=== PATIENT | female | born 1960 | race Caucasian/White ===

== ENCOUNTER → 2017-03-12 | Outpatient (CLI) | payer BC ==
[~2017-03-12] MED LIST: GLUCAGON FOR INJ 1 MG VIAL SQ SCH; NURSING VERBAL MED ORDER ONE; PXLUNK; thyroxine
--- NOTE | 2017-03-12 13:16 | DIAGNOSTIC IMAGING REPORT ---
MR ENTEROGRAPHY OF THE ABDOMEN AND PELVIS CLINICAL HISTORY: B12 deficiency. Small bowel abnormality on prior MRI and CT. COMPARISON STUDY: CT of the abdomen and pelvis March 25, 2016 and MR enterography May 26, 2016. TECHNIQUE: The patient ingested Volumen. There was a 1.5 Gena magnet, multiplanar, multi echo imaging of the abdomen was performed pre and postcontrast administration. Injection of 9 cc of Gadavist IV was uneventful. 1 mg of glucagon was administered IM at 10:25 AM. FINDINGS: There is suspected fatty infiltration of the liver. No hepatic lesions are present. The spleen, adrenal glands, kidneys and pancreas are normal. There is no biliary or pancreatic ductal dilatation. There is no evidence for a bowel obstruction. There is mild wall thickening and enhancement of the terminal ileum which is slightly improved since MRI of May 26, 2016. There is wall thickening is predominantly T2 hypointense. No additional areas of bowel wall thickening are present. No abscess or fistula is identified on since examination. Several uterine lesions are unchanged and suggest fibroids. Visualized skeletal structures are unremarkable. There is no ascites. Major vasculature of the abdomen is patent. IMPRESSION: 1. Mild terminal ileal wall thickening and enhancement, slightly improved since MRI of May 26, 2016. This favors a chronic inflammatory process such as Crohn's disease. No abscess, fistula or bowel obstruction. 2. No additional sites of bowel wall thickening. Electronically signed by: Oliver Landry M.D. 03/12/2017 1:15 PM Dictated Date/Time: 03/12/2017 11:46 AM
== END | disposition home or self-care (01) ==
LOC: C.MRI 08:41
PROVIDERS: ATTEND Internal Medicine Gastroenterology
DX: E53.8 Deficiency of other specified B group vitamins (principal)

== ENCOUNTER → 2017-08-04 | Outpatient (CLI) | payer BC ==
[~2017-08-04] MED LIST changes: -GLUCAGON FOR INJ 1 MG VIAL SQ SCH; -NURSING VERBAL MED ORDER ONE
== END | disposition home or self-care (01) ==
LOC: C.PAPS 11:42
PROVIDERS: ATTEND Family Medicine
DX: Z12.72 Encounter for screening for malignant neoplasm of vagina (principal)

== ENCOUNTER → 2017-11-23 | Outpatient (CLI) | payer OTHER ==
--- NOTE | 2017-11-25 07:55 | MAMMOGRAPHY REPORT ---
BILATERAL DIGITAL SCREENING MAMMOGRAM TOMOSYNTHESIS WITH CAD: 11/23/2017 CLINICAL HISTORY: Routine screening. Patient has no complaints. TECHNIQUE: Breast tomosynthesis in addition to standard 2D mammography was performed. Current study was also evaluated with a Computer Aided Detection (CAD) system. COMPARISON: Comparison is made to exams dated: 08/01/2013 mammogram, 06/09/2012 mammogram, 1 mammogram - [facility], 10/08/2008, 04/01/2007, and 04/01/2007. BREAST COMPOSITION: There are scattered areas of fibroglandular density in both breasts. FINDINGS: There is a 9 mm partially circumscribed mass in the 6:00 posterior left breast, and adjace nt 3 mm nodular asymmetry slightly lateral to the 6:00 mass in the CC projection, for which additiona l spot compression tomosynthesis views and possible ultrasound are recommended. No other suspicious mass, architectural distortion or cluster of microcalcifications is seen bilatera lly. IMPRESSION: ACR BI-RADS CATEGORY 0: INCOMPLETE EVALUATION: NEED ADDITIONAL IMAGING EVALUATION The 9 mm mass in the 6:00 left breast, and adjacent nodular asymmetry need additional evaluation. The patient will be called to schedule an appointment. Approximately 10% of breast cancers are not detected with mammography. A negative mammographic report should not delay biopsy if a clinically suggestive mass is present. Marley Moss M.D. 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
== END | disposition home or self-care (01) ==
LOC: C.MAMM 11:04
PROVIDERS: ATTEND Family Medicine
DX: Z12.31 Encounter for screening mammogram for malignant neoplasm of breast (principal); N63.20 Unspecified lump in the left breast, unspecified quadrant

== ENCOUNTER → 2017-11-23 | Outpatient (CLI) | payer OTHER | END | disposition home or self-care (01) | LOC: C.PATHSPEC 17:11 | PROVIDERS: ATTEND Plastic Surgery | DX: L72.9 Follicular cyst of the skin and subcutaneous tissue, unspecified (principal); L73.8 Other specified follicular disorders ==

== ENCOUNTER → 2017-11-30 | Outpatient (CLI) | payer OTHER ==
--- NOTE | 2017-12-01 07:51 | MAMMOGRAPHY REPORT ---
UNILATERAL LEFT DIGITAL DIAGNOSTIC MAMMOGRAM TOMOSYNTHESIS AND TARGETED LEFT ULTRASOUND: 11/30/2017 CLINICAL HISTORY: Callback from screening mammography for a 9 mm partially circumscribed mass and pos sible 3 mm nodular asymmetry in the left breast. TECHNIQUE: Spot compression tomosynthesis left CC and MLO views were obtained; Full-field left CC an d MLO tomosynthesis images were obtained after placement of a skin BB marker. COMPARISON: Comparison is made to exams dated: 11/23/2017 mammogram, 08/01/2013 mammogram, 06/09/2012 mammogram, 06/04/2011 mammogram - [facility], 10/08/2008, and 03/29/2007. BREAST COMPOSITION: There are scattered areas of fibroglandular density in the left breast. FINDINGS: The spot compression tomosynthesis images of the left breast demonstrate a persistent lobul ated and circumscribed, 4.6 x 7.5 x 7.2 mm mass in the approximate 6:00 posterior left breast. No as sociated architectural distortion or calcification. The 3 mm nodular asymmetry seen on screening donnie mography is less conspicuous and possibly seen on the spot compression CC tomosynthesis slice 12 but not identified on the MLO view. Further evaluation with ultrasound was performed. When comparing ba ck to all available prior mammograms, the 7.5 mm mass in the 6:00 axis appears somewhat similar datin g back to 2011 and was present but minimally increased in size comparing to the 2011 mammograms not d efinitely seen in 2008. Targeted ultrasound was performed in the inferior left breast with particular attention to the 5:00, 6:00 and 7:00 axes. In the 6:00 breast, 5 cm from the nipple, there is a predominantly anechoic lobu lated cystic mass with a few thin internal nonvascular septations, measuring 7.2 x 2.9 x 7.2 mm. Thi s may possibly correlate with the mammographic mass and therefore a skin BB was placed overlying the sonographic abnormality and repeat full field left CC and MLO tomosynthesis images were obtained. On these additional tomosynthesis views, the BB marker aligns with the mammographic mass in question, c onfirming mammographicsonographic correlation. No other discrete solid or cystic mass was identifie d in the 5:00 through 7:00 axes of the left breast on targeted ultrasound to correlate with the 3 mm nodular asymmetry. IMPRESSION: ACR-BI-RADS CATEGORY 3: PROBABLY BENIGN, TARGETED ULTRASOUND ACR-BI-RADS CATEGORY 3: PRO BABLY BENIGN 1. There is a persistent 7.5 mm mammographic mass in the 6:00 posterior left breast, with probable c ystic correlate in the 6:00 axis on ultrasound. Given that the sonographic mass has a few thin inter nal nonvascular septations and does not fit all the criteria for a benign simple cyst, a short interv al follow-up left diagnostic mammogram and repeat targeted ultrasound is recommended to ensure stabil ity in 6 months. 2. A 3 mm nodular asymmetry slightly medial to the 7.5 mm mass in the CC projection is not definitel y seen on supplemental spot compression views and no suspicious sonographic correlate was identified. Nevertheless, repeat attention at follow-up diagnostic mammography is recommended to ensure stabili ty in 6 months. These results and recommendations were discussed with the patient at the time of the exam. She tenta tively scheduled a follow-up appointment prior to leaving our department. Approximately 10% of breast cancers are not detected with mammography. A negative mammographic report should not delay biopsy if a clinically suggestive mass is present. Marley Moss M.D. ay/:11/30/2017 15:15:54 Fashion Director Party Plan Sales: Mook HONEYCUTT)(M), [facility] letter sent: Follow Up Recommended 3 BI-RADS Code: ACR-BI-RADS Category 3: Probably Benign Ultrasound BI-RADS: ACR-BI-RADS Category 3: Pr obably Benign
== END | disposition home or self-care (01) ==
LOC: C.MAMM 12:19
PROVIDERS: ATTEND Family Medicine
DX: N64.89 Other specified disorders of breast (principal); N63.20 Unspecified lump in the left breast, unspecified quadrant